=== PATIENT | female | born 1995 | race Caucasian/White ===

== ENCOUNTER 2023-05-07 21:24 | Emergency (ER) | payer OTHER ==
[2023-05-07 21:52] VITALS: BP 120/70; PULSE 83; RESP 16; TEMP 97.8; BMI 38.9
== END 2023-05-07 21:55 | disposition home or self-care (01) ==
LOC: FER 21:24
DX: H92.02 Otalgia, left ear (principal); H61.22 Impacted cerumen, left ear
CPT/HCPCS: 99283-25